=== PATIENT | female | born 1985 | race African-American/Black ===

== ENCOUNTER 2018-09-23 06:13 | Emergency (ER) | payer OTHER ==
[~2018-09-23] VITALS: Ht 157.5 cm; Wt 50.0 kg
[2018-09-23] MEDS ORDERED: IBUPROFEN 600MG TABLET PO STA (08:07)
[2018-09-23 09:20] LABS: CLARITY URINE CLEAR (CLEAR); COLOR URINE YELLOW (YELLOW); KETONES URINE NEGATIVE (NEGATIVE); LEUKOCYTE ESTERASE URINE TRACE (NEGATIVE); NITRITE URINE NEGATIVE (NEGATIVE); OCCULT BLOOD URINE 1+ (NEGATIVE); PH URINE 6.5 (4.5-8.0); PROTEIN URINE NEGATIVE (NEGATIVE)
[2018-09-23 09:37] VITALS: BP 90/53
== END 2018-09-23 10:15 | disposition home or self-care (01) ==
LOC: ER 06:13
DX: J06.9 Acute upper respiratory infection, unspecified (principal); J02.9 Acute pharyngitis, unspecified
CPT/HCPCS: 71045; 81025; 87070; 87430; 99285

== ENCOUNTER 2024-09-09 16:27 | Emergency (ER) | payer MEDICAID, OTHER ==
[~2024-09-09] VITALS: Ht 160 cm; Wt 45.4 kg
[2024-09-09 16:33] VITALS: O2SAT 99
[2024-09-09] MEDS: IBUPROFEN 600MG TABLET PO ONE (18:35)
[2024-09-09] MEDS: METHOCARBAMOL 500MG TABLET PO ONE (18:35)
[2024-09-09] MEDS ORDERED: METH-653 MT (19:02)
[2024-09-09] MEDS ORDERED: IBUP-2029 MT (19:02)
[2024-09-09 19:16] VITALS: BP 132/89; PULSE 95; RESP 18; TEMP 36.66960; O2SAT 99
== END 2024-09-09 19:17 | disposition home or self-care (01) ==
LOC: ER 16:27
DX: S20.219A Contusion of unspecified front wall of thorax, initial encounter (principal); S43.401A Unspecified sprain of right shoulder joint, initial encounter; V49.9XXA Car occupant (driver) (passenger) injured in unspecified traffic accident, initial encounter; Y93.89 Activity, other specified; Y92.89 Other specified places as the place of occurrence of the external cause; Y99.8 Other external cause status
CPT/HCPCS: 71045; 73030; 93005; 99284